=== PATIENT | male | born 1990 | race Hispanic/Latino ===

== ENCOUNTER 2020-03-06 17:22 | Emergency (ER) | payer OTHER ==
--- NOTE | 2020-03-06 19:21 | RAD REPORT ---
EXAM DESCRIPTION: CT - Head C Spine Mpr Wo Con - 03/06/2020 7:01 pm CLINICAL HISTORY: Numbness COMPARISON: None. TECHNIQUE: Computed axial tomography of the head and cervical spine was obtained. Sagittal and coronal reconstruction was performed. All CT scans are performed using dose optimization technique as appropriate and may include automated exposure control or mA/KV adjustment according to patient size. FINDINGS: An intracranial bleed is not seen. The ventricles are normal in caliber. An extra-axial fl uid collection is not noted.Fluid within the visualized sinuses and mastoids is not seen A cervical fracture is not visualized. No dislocation is noted. A high-grade stenosis is not visualiz ed. IMPRESSION: No acute intracranial abnormality is seen. A cervical fracture is not visualized. If the patient continues to have symptoms to suggest intracra nial /spinal cord/spinal canal pathology then MRI would be recommended
[2020-03-06 19:24] LABS: Absolute Lymphocytes (CBC) 2.4 K/uL (0.7-4.9); Basophils % 0.3 % (0-1.3); Hematocrit 46.1 % (39.6-49.0); Lymphocytes % 34.5 % (15.3-44.8); MPV 7.6 fL (7.6-11.3); RBC Red Blood Cell Count 5.38 M/uL (4.33-5.43)
[2020-03-06 19:43] LABS: ALT/SGPT 64 U/L (12-78); AST/SGOT 25 U/L (15-37); Albumin 4.2 g/dL (3.4-5.0); Alkaline Phosphatase 64 U/L (45-117); BUN Blood Urea Nitrogen 10 mg/dL (7-18); Bicarbonate 26 mmol/L (21-32); Bilirubin Direct < 0.1 mg/dL (0-0.2); Bilirubin Total 0.2 mg/dL (0.2-1.0); Glucose Level 96 mg/dL (74-106); Potassium 3.6 mmol/L (3.5-5.1); Protein, Total 8.3 g/dL (6.4-8.2); Sodium Level 140 mmol/L (136-145)
--- NOTE | 2020-03-06 19:47 | ER ---
Nurse's Notes [facility] Name: Michael Lizarraga Age: 29 yrs Sex: Male : 1990 Arrival Date: 03/06/2020 Time: 17:26 Bed 24 Private MD: Diagnosis: Paresthesia of skin;Radiculopathy Presentation: 03/06 18:00 Chief complaint: Patient states: Numbness, tingling on the L leg and L arm, been about ca1 a year. It gets worse after a night of drinking. I get shaky too, more on the L arm and leg. My leg and arm, it's just an uncomfortable feeling, not really pain. Coronavirus screen: Client denies travel out of the [place] in the last 14 days. At this time, the client does not indicate any symptoms associated with coronavirus-19. Ebola Screen: Patient negative for fever greater than or equal to 101.5 degrees Fahrenheit, and additional compatible Ebola Virus Disease symptoms Patient denies exposure to infectious person. Patient denies travel to an Ebola-affected area in the 21 days before illness onset. No symptoms or risks identified at this time. Initial Sepsis Screen: Does the patient meet any 2 criteria? No. Patient's initial sepsis screen is negative. Does the patient have a suspected source of infection? No. Patient's initial sepsis screen is negative. Risk Assessment: Do you want to hurt yourself or someone else? Patient reports no desire to harm self or others. Onset of symptoms was March 06, 2020. 18:00 Method Of Arrival: Ambulatory ca1 18:00 Acuity: ROSE 3 ca1 Historical: - Allergies: 18:06 No Known Allergies; ca1 - Home Meds: 18:06 None [Active]; ca1 - PMHx: 18:06 None; ca1 - PSHx: 18:06 None; ca1 - Immunization history:: Adult Immunizations up to date. - Social history:: Smoking status: Patient reports the use of cigarette tobacco products, smokes one-half pack cigarettes per day, Patient uses alcohol, weekly. heavy during the weekend. Screenin:46 Abuse screen: Denies threats or abuse. Nutritional screening: No deficits noted. jd3 Tuberculosis screening: No symptoms or risk factors identified. Fall Risk Ambulatory Aid- None/Bed Rest/Nurse Assist (0 pts). Gait- Normal/Bed Rest/Wheelchair (0 pts) Mental Status- Oriented to own ability (0 pts). Total Seo Fall Scale indicates No Risk (0-24 pts). 18:46 VAN Screening: Arm Drift: Patient shows no arm weakness. Patient is VAN negative. jd3 Assessment: 18:45 General: Appears in no apparent distress. uncomfortable, Behavior is calm, cooperative, jd3 appropriate for age. Pain: Denies pain. Neuro: Level of Consciousness is awake, alert, obeys commands, Oriented to person, place, time, situation, Telemarketing Fundraiser are equal bilaterally Moves all extremities. Full function Speech is normal, Facial symmetry appears normal, Pupils are PERRLA, Intact Reports numbness in left arm and left leg since X 1 year. Cardiovascular: Denies chest pain, Capillary refill < 3 seconds Patient's skin is warm and dry. Respiratory: Airway is patent Respiratory effort is even, unlabored, Respiratory pattern is regular, symmetrical. GI: Abdomen is round non-distended, Abd is soft and non tender X 4 quads. Patient currently denies diarrhea, nausea, vomiting. : No signs and/or symptoms were reported regarding the genitourinary system. EENT: No signs and/or symptoms were reported regarding the EENT system. Derm: Skin is intact, Skin is dry, Skin is normal, Skin temperature is warm. Musculoskeletal: Circulation, motion, and sensation intact. Range of motion: intact in all extremities. 19:20 Reassessment: Patient appears in no apparent distress at this time. No changes from jd3 previously documented assessment. Patient and/or family updated on plan of care and expected duration. Pain level reassessed. Patient is alert, oriented x 3, equal unlabored respirations, skin warm/dry/pink. 19:51 Reassessment: Patient appears in no apparent distress at this time. Patient and/or jd3 family updated on plan of care and expected duration. Pain level reassessed. Patient is alert, oriented x 3, equal unlabored respirations, skin warm/dry/pink. 19:59 Reassessment: Patient appears in no apparent distress at this time. Patient and/or jd3 family updated on plan of care and expected duration. Pain level reassessed. Patient is alert, oriented x 3, equal unlabored respirations, skin warm/dry/pink. reports understanding of discharge instructions, even and steady gait upon discharge. Vital Signs: 18:00 BP 152 / 96; Pulse 88; Resp 15 S; Temp 97.8(TE); Pulse Ox 99% on R/A; Weight 79.38 kg ca1 (R); Height 5 ft. 7 in. (170.18 cm) (R); 19:20 BP 141 / 88; Pulse 74; Resp 18 S; Pulse Ox 98% on R/A; jd3 19:51 BP 114 / 62; Pulse 77; Resp 16 S; Pulse Ox 97% on R/A; jd3 18:00 Body Mass Index 27.41 (79.38 kg, 170.18 cm) ca1 ED Course: 17:26 Patient arrived in ED. rg4 18:05 Triage completed. ca1 18:06 Arm band placed on right wrist. ca1 18:23 Gab Gavin PA is PHCP. jr8 18:23 Inderjit Haas MD is Attending Physician. jr8 18:45 Oracio De Jesus RN is Primary Nurse. jd3 18:46 Patient has correct armband on for positive identification. Bed in low position. Call jd3 light in reach. Side rails up X 1. Pulse ox on. NIBP on. 19:00 CT Head C Spine In Process Unspecified. EDMS 19:15 Inserted saline lock: 20 gauge in right antecubital area, using aseptic technique. jd3 Blood collected. 19:47 Landon Toney MD is Referral Physician. jr8 19:51 No provider procedures requiring assistance completed. jd3 20:00 IV discontinued, intact, bleeding controlled, No redness/swelling at site. Pressure jd3 dressing applied. Administered Medications: No medications were administered Outcome: 19:47 Discharge ordered by . jr8 20:00 Discharged to home ambulatory. jd3 20:00 Condition: stable 20:00 Discharge instructions given to patient, Instructed on discharge instructions, follow up and referral plans. Demonstrated understanding of instructions, follow-up care. 20:00 Patient left the ED. jd3 Signatures: Dispatcher [employer] EDMS Gab Gavin PA PA jr8 Jo Saxena rg4 Oracio De Jesus RN RN jd3 Sraa Torres RN RN ca1 Corrections: (The following items were deleted from the chart) 19:52 19:51 IV discontinued, intact, bleeding controlled, No redness/swelling at site. jd3 Pressure dressing applied, jd3
--- NOTE | 2020-03-06 19:48 | EDPHYS ---
Physician Documentation [facility] Name: Michael Lizarraga Age: 29 yrs Sex: Male : 1990 Arrival Date: 03/06/2020 Time: 17:26 Bed 24 Private MD: ED Physician Inderjit Haas HPI: 03/06 23:32 This 29 yrs old Male presents to ER via Ambulatory with complaints of Numbness jr8 Of Arm, Numbness Of Leg. 23:32 Onset: The symptoms/episode began/occurred gradually. Modifying factors: The symptoms jr8 are alleviated by nothing. the symptoms are aggravated by movement. Associated signs and symptoms: The patient has no apparent associated signs or symptoms. Severity of symptoms: At their worst the symptoms were moderate, in the emergency department the symptoms are unchanged. The patient has not experienced similar symptoms in the past. The patient has not recently seen a physician. Patient stated that for the past year has had numbness and tremors to left arm and leg. Worse with alcohol use. Became worse over the past few days which is why he came to be evaluated in ED today . Historical: - Allergies: 18:06 No Known Allergies; ca1 - Home Meds: 18:06 None [Active]; ca1 - PMHx: 18:06 None; ca1 - PSHx: 18:06 None; ca1 - Immunization history:: Adult Immunizations up to date. - Social history:: Smoking status: Patient reports the use of cigarette tobacco products, smokes one-half pack cigarettes per day, Patient uses alcohol, weekly. heavy during the weekend. ROS: 23:32 Eyes: Negative for injury, pain, redness, and discharge, ENT: Negative for injury, jr8 pain, and discharge, Neck: Negative for injury, pain, and swelling, Cardiovascular: Negative for chest pain, palpitations, and edema, Respiratory: Negative for shortness of breath, cough, wheezing, and pleuritic chest pain, Abdomen/GI: Negative for abdominal pain, nausea, vomiting, diarrhea, and constipation, Back: Negative for injury and pain, MS/Extremity: Negative for injury and deformity, Skin: Negative for injury, rash, and discoloration. 23:32 Neuro: Positive for numbness, tremor, of the left arm and left leg. Exam: 23:32 Constitutional: This is a well developed, well nourished patient who is awake, alert, jr8 and in no acute distress. Eyes: Pupils equal round and reactive to light, extra-ocular motions intact. Lids and lashes normal. Conjunctiva and sclera are non-icteric and not injected. Cornea within normal limits. Periorbital areas with no swelling, redness, or edema. ENT: Nares patent. No nasal discharge, no septal abnormalities noted. Tympanic membranes are normal and external auditory canals are clear. Oropharynx with no redness, swelling, or masses, exudates, or evidence of obstruction, uvula midline. Mucous membranes moist. Neck: Trachea midline, no thyromegaly or masses palpated, and no cervical lymphadenopathy. Supple, full range of motion without nuchal rigidity, or vertebral point tenderness. No Meningismus. Cardiovascular: Regular rate and rhythm with a normal S1 and S2. No gallops, murmurs, or rubs. Normal PMI, no JVD. No pulse deficits. Respiratory: Lungs have equal breath sounds bilaterally, clear to auscultation and percussion. No rales, rhonchi or wheezes noted. No increased work of breathing, no retractions or nasal flaring. Abdomen/GI: Soft, non-tender, with normal bowel sounds. No distension or tympany. No guarding or rebound. No evidence of tenderness throughout. Back: No spinal tenderness. No costovertebral tenderness. Full range of motion. Skin: Warm, dry with normal turgor. Normal color with no rashes, no lesions, and no evidence of cellulitis. MS/ Extremity: Pulses equal, no cyanosis. Neurovascular intact. Full, normal range of motion. 23:32 Neuro: Orientation: to person, place, time \T\ situation. Mentation: is normal, Memory: is normal, Cranial nerves: CN I not tested, CN II- XII are normal as tested, visual will are intact. extraocular movements are intact, Facial palsy and sensory deficits are absent. Nystagmus is absent. Speech is clear and appropriate. Tongue strength is normal, Cerebellar function: normal finger to nose testing, heel to baltazar testing is normal, Motor: moves all fours, strength is 5/5 in all extremities, Sensation: no obvious gross deficits, Gait: not tested. Deep tendon reflexes are 2+ (normal) in the right tricep, right bicep, right brachioradialis, right patellar, left bicep, left tricep, left brachioradialis and left patellar, seizure activity, is not displayed by the patient, Abnormal movements: there are no abnormal movements. Vital Signs: 18:00 BP 152 / 96; Pulse 88; Resp 15 S; Temp 97.8(TE); Pulse Ox 99% on R/A; Weight 79.38 kg ca1 (R); Height 5 ft. 7 in. (170.18 cm) (R); 19:20 BP 141 / 88; Pulse 74; Resp 18 S; Pulse Ox 98% on R/A; jd3 19:51 BP 114 / 62; Pulse 77; Resp 16 S; Pulse Ox 97% on R/A; jd3 18:00 Body Mass Index 27.41 (79.38 kg, 170.18 cm) ca1 MDM: 18:23 Patient medically screened. jr8 19:46 Data reviewed: vital signs, nurses notes, lab test result(s), radiologic studies, CT jr8 scan, and as a result, I will discharge patient. Data interpreted: Pulse oximetry: on room air is 98 %. Interpretation: normal. Counseling: I had a detailed discussion with the patient and/or guardian regarding: the historical points, exam findings, and any diagnostic results supporting the discharge/admit diagnosis, lab results, radiology results, the need for outpatient follow up, a neurologist, to return to the emergency department if symptoms worsen or persist or if there are any questions or concerns that arise at home. 03/06 18:45 Order name: Basic Metabolic Panel; Complete Time: 19:46 03/06 18:45 Order name: CBC with Diff; Complete Time: 19:46 03/06 18:45 Order name: LFT's; Complete Time: 19:46 03/06 18:45 Order name: Magnesium; Complete Time: 19:46 03/06 18:45 Order name: Cardiac monitoring; Complete Time: 18:47 03/06 18:45 Order name: CT Head C Spine; Complete Time: 19:22 03/06 18:45 Order name: IV Saline Lock; Complete Time: 19:50 03/06 18:45 Order name: Labs collected and sent; Complete Time: 19:50 03/06 18:45 Order name: O2 Per Protocol; Complete Time: 18:47 jr8 03/06 18:45 Order name: O2 Sat Monitoring; Complete Time: 18:47 8 Administered Medications: No medications were administered Disposition: 03/06/20 19:47 Discharged to Home. Impression: Paresthesia of skin, Radiculopathy. - Condition is Stable. - Discharge Instructions: Paresthesia, Peripheral Neuropathy. - Medication Reconciliation Form, Thank You Letter, Antibiotic Education, Prescription Opioid Use form. - Follow up: Landon Toney MD; When: 5 - 6 days; Reason: Recheck today's complaints, Continuance of care, Re-evaluation by your physician. - Problem is new. - Symptoms are unchanged. Addendum: 03/10/2020 20:25 Co-signature as Attending Physician, Inderjit Haas MD. r n Signatures: Dispatcher [employer] EDMS Inderjit Haas MD MD rn Gab Gavni, LATISHA GOOD jr8 Oracio De Jesus RN RN jSara Matias RN RN ca1 Corrections: (The following items were deleted from the chart) 03/06 20:00 19:47 03/06/2020 19:47 Discharged to Home. Impression: Paresthesia of skin; jd3 Radiculopathy. Condition is Stable. Forms are Medication Reconciliation Form, Thank You Letter, Antibiotic Education, Prescription Opioid Use. Follow up: Landon Toney; When: 5 - 6 days; Reason: Recheck today's complaints, Continuance of care, Re-evaluation by your physician. Problem is new. Symptoms are unchanged. jr8
[2020-03-06 21:50] VITALS: TEMP 97.8
[2020-03-06 21:52] VITALS: BP 114/62; O2SAT 97
== END 2020-03-06 20:00 | disposition home or self-care (01) ==
LOC: ER 17:22
DX: M54.10 Radiculopathy, site unspecified (principal); F17.210 Nicotine dependence, cigarettes, uncomplicated
CPT/HCPCS: 36415; 70450; 72125; 80048; 80076; 83735; 85025; 99284

== ENCOUNTER 2023-03-15 17:30 | Emergency (ER) | payer OTHER ==
--- OUTSIDE RECORDS SUMMARY | 2023-03-15 17:32 | XMS REPORT | Continuity of Care Document ---
:1990 Author Organization [facility] t Address [address] [facility] [address] [place] [id number] Care Team Providers Name Role Phone locum[facility] Attending Clinician Unavailable locumens Admitting Clinician Unavailable Payers Payer Name Policy Type Policy Number Effective Date Expiration Date [place] [id number] 00:00:00 Problems This patient has no known problems. Allergies, Adverse Reactions, Alerts This patient has no known allergies or adverse reactions. Medications This patient has no known medications. Procedures This patient has no known procedures. Encounters Start End Encounter Admission Attending Care Care Encounter Source Date/Time Date/Time Type Type Clinicians Facility Department ID 2020-12-20 2020-12-20 Outpatient [id number] [place] 04:30:00 04:30:00 [facility] Results This patient has no known results.
[2023-03-15 17:48] LABS: Absolute Lymphocytes (CBC) 4.4 K/uL (0.7-4.9); Hematocrit 41.4 % (39.6-49.0); MCV 85.8 fL (80-100); MPV 6.9 fL (7.6-11.3); Platelets 265 thou/uL (152-406); RBC Red Blood Cell Count 4.83 M/uL (4.33-5.43)
[2023-03-15] MEDS ORDERED: ASPIRIN 81 MG CHEWABLE TABLET ONE (17:55)
[2023-03-15] MEDS ORDERED: MAGNESIUM SULFATE 1 gm IVPB 1 GM/100 ML BAG IV ONE (17:56)
[2023-03-15] MEDS ORDERED: NA CHLORIDE 0.9% 2,000 ML ONE (17:56)
[2023-03-15] MEDS ORDERED: FAMOTIDINE 20 MG/2 ML VIAL IV ONE (17:56)
[2023-03-15 17:59] LABS: Protime INR 1.05
[2023-03-15 18:02] LABS: Potassium 3.4 mEq/L (3.5-5.1)
--- NOTE | 2023-03-15 18:08 | RAD REPORT ---
EXAM DESCRIPTION: Enrrique Single View03/15/2023 5:43 pm CLINICAL HISTORY: CHEST PAIN COMPARISON: No comparisons TECHNIQUE: Portable AP view of the chest. FINDINGS: The lungs are clear. No pneumothorax or effusion. The cardiomediastinal contours are unrem arkable. IMPRESSION: No acute cardiopulmonary process.
[2023-03-15 18:27] LABS: Specific Gravity 1.021 (1.005-1.030); Urine Bacteria None Seen /HPF (<20); Urine Bilirubin NEGATIVE (Negative); Urine Blood Negative (Negative); Urine Clarity Turbid (Clear); Urine Color Light-Yellow (Yellow); Urine Glucose NEGATIVE (Negative); Urine Mucus Slight /HPF (None Seen); Urine Protein 1+ (Negative); Urine RBC <5 /HPF (None Seen); Urine Urobilinogen Normal (Normal); Urine pH 6.5 (5.0-7.0)
[2023-03-15 18:29] LABS: Barbiturates NEGATIVE (NEGATIVE); Benzodiazepines NEGATIVE (NEGATIVE); Cocaine POSITIVE (NEGATIVE); METHAMPHETAM NEGATIVE (NEGATIVE); Methadone NEGATIVE (NEGATIVE); Opiates NEGATIVE (NEGATIVE); Phencyclidine NEGATIVE (NEGATIVE); THC Cannibis NEGATIVE (NEGATIVE)
[2023-03-15 18:33] LABS: ALT/SGPT 57 U/L (16-61); AST/SGOT 25 U/L (15-37); Albumin 3.9 g/dL (3.4-5.0); Alkaline Phosphatase 59 U/L (45-117); Bilirubin Direct 0.1 mg/dL (0-0.2); Bilirubin Indirect, Calculated 0.3 mg/dL (0.2-0.8); Bilirubin Total 0.4 mg/dL (0.2-1.0); Protein, Total 7.3 g/dL (6.4-8.2)
[2023-03-15] MEDS ORDERED: LORazepam 2 MG/ML VIAL ONE (18:52)
[2023-03-15] MEDS ORDERED: POTASSIUM 25 MEQ EFFERV TAB ONE (18:57)
[2023-03-15] MEDS ORDERED: THIAMINE 200 MG/2 ML INJ ONE (18:57)
[2023-03-15] MEDS ORDERED: MULTIVITAMINS 10 ML VIAL (INJ) IV ONE (18:58)
[2023-03-15] MEDS ORDERED: FOLIC ACID 5 MG/ML VIAL ONE (18:59)
[2023-03-15] MEDS ORDERED: NA CHLORIDE 0.9% 1,000 ML ONE (18:59)
--- NOTE | 2023-03-15 19:18 | ER ---
Nurse's Notes [facility] Name: Michael Lizarraga Age: 32 yrs Sex: Male : 1990 Arrival Date: 03/15/2023 Time: 17:30 Bed 20 Private MD: Diagnosis: Adjustment disorder with anxiety;Cocaine abuse;Chest pain, unspecified;Tachycardia, unspecified;Hypokalemia;Alcohol abuse with intoxication Presentation: 03/15 17:34 Chief complaint: EMS states: toned out for patient c/o chest fluttering for several me1 hours. On arrival HR 220s, SVT per EKG. Gave adenosine 12 mg x2. No response to the first dose but after the second dose HR came down to 120s, ST per EKG. Per patient he did do cocaine last night and was drinking for the past few days. 17:34 Method Of Arrival: EMS [facility] 17:37 Coronavirus screen: Vaccine status: Patient reports being unvaccinated. At this time, ma1 the client does not indicate any symptoms associated with coronavirus-19. Ebola Screen: No symptoms or risks identified at this time. Initial Sepsis Screen: Does the patient meet any 2 criteria? No. Patient's initial sepsis screen is negative. Does the patient have a suspected source of infection? No. Patient's initial sepsis screen is negative. Risk Assessment: Do you want to hurt yourself or someone else? Patient reports no desire to harm self or others. Onset of symptoms was March 15, 2023. 17:37 Method Of Arrival: EMS: [facility] 17:37 Acuity: ROSE 2 me1 Triage Assessment: 17:38 General: Appears distressed, well groomed, well developed, well nourished, Behavior is me1 cooperative, appropriate for age, anxious, restless. Pain: Denies pain. Neuro: Level of Consciousness is awake, alert, obeys commands, Oriented to person, place, time, situation, Appropriate for age. Cardiovascular: Capillary refill < 3 seconds Patient's skin is warm and dry. Cardiovascular: Reports palpitations, Respiratory: Airway is patent Respiratory effort is even, unlabored, Respiratory pattern is regular, symmetrical. Historical: - Allergies: 17:38 No Known Allergies; me1 - Home Meds: 17:38 gabapentin oral [Active]; me1 - PMHx: 17:38 neuropathy; me1 - PSHx: 17:38 None; me1 - Immunization history:: Adult Immunizations unknown. - Social history:: Smoking status: Reported history of juuling and/or vaping. Screenin:41 [facility] ED Fall Risk Assessment (Adult) History of falling in the last 3 months, me1 including since admission No falls in past 3 months (0 pts) Confusion or Disorientation No (0 pts) Intoxicated or Sedated No (0 pts) Impaired Gait No (0 pts) Mobility Assist Device Used No (0 pt) Altered Elimination No (0 pt) Score/Fall Risk Level 0 - 2 = Low Risk. Abuse screen: Denies threats or abuse. Nutritional screening: No deficits noted. Tuberculosis screening: No symptoms or risk factors identified. Assessment: 17:41 General: See triage assessment. . Pain: Denies pain. me1 21:31 Pain:. me1 Vital Signs: 17:37 BP 159 / 90; Pulse 137; Resp 20; Temp 99.1(O); Pulse Ox 96% on R/A; Weight 92.99 kg; me1 Height 5 ft. 6 in. ; 18:00 BP 136 / 59; Pulse 114; Resp 19; Pulse Ox 96% ; me1 19:00 BP 117 / 89; Pulse 110; Resp 17; Pulse Ox 96% ; me1 21:30 BP 143 / 101; Pulse 91; Resp 18; Pulse Ox 97% on R/A; me1 17:37 Body Mass Index 33.09 (92.99 kg, 167.64 cm) ma1 ED Course: 17:32 Patient arrived in ED. me1 17:34 Erinn Maza, YAHIR is Primary Nurse. me1 17:38 Triage completed. me1 17:38 Arm band placed on Patient placed in an exam room. me1 17:40 Joseph Flores MD is Attending Physician. [facility] 17:41 Patient has correct armband on for positive identification. Bed in low position. Call [facility] light in reach. Side rails up X2. Provided Education on: POC. Verbalized understanding. . Client placed on continuous cardiac and pulse oximetry monitoring. NIBP monitoring applied. ash kier boiler on. Pulse ox on. 17:41 No provider procedures requiring assistance completed. Inserted saline lock: 22 gauge me1 in right antecubital area, using aseptic technique. Patient maintains SpO2 saturation greater than 95% on room air. 17:44 XRAY Chest (1 view) In Process Unspecified. EDMS 17:47 Acetaminophen Sent. me1 17:47 ETOH Level Sent. me1 17:47 Hepatic Function Sent. me1 17:47 PT-INR Sent. me1 17:47 Ptt, Activated Sent. me1 17:47 Salicylate Sent. me1 17:47 TSH Sent. me1 18:08 TSH Sent. me1 18:08 Acetaminophen Sent. me1 18:08 ETOH Level Sent. me1 18:08 Hepatic Function Sent. me1 18:08 Salicylate Sent. me1 18:08 Urinalysis w/ reflexes Sent. me1 18:08 Urine Drug Screen Sent. me1 19:16 Rickie Davis MD is Referral Physician. mat 19:16 Eagle Vaughn MD is Referral Physician. mat 21:30 IV discontinued, intact, bleeding controlled, No redness/swelling at site. Pressure me1 dressing applied. Administered Medications: 17:41 CANCELLED (Duplicate Order): Digoxin IVP 0.5 mg IVP once mat 18:08 Drug: NS 0.9% IV 1000 ml Route: IV; Rate: 1 bolus; Site: right antecubital; me1 19:40 Follow up: IV Status: Completed infusion; IV Intake: 1000ml me1 18:08 Drug: NS 0.9% IV 1000 ml Route: IV; Rate: 1 bolus; Site: right antecubital; me1 19:00 Follow up: IV Status: Completed infusion; IV Intake: 1000ml me1 18:08 Drug: Magnesium Sulfate IVPB 1 grams Route: IVPB; Infused Over: 1 hrs; Site: left ma1 antecubital; 18:59 Follow up: IV Status: Completed infusion; IV Intake: 100ml me1 18:08 Drug: Famotidine IVP 20 mg Route: IVP; Site: right antecubital; me1 19:30 Follow up: Response: No adverse reaction me1 18:08 Drug: Aspirin PO Chewable Tablet 324 mg Route: PO; me1 21:33 Follow up: Response: No adverse reaction me1 18:35 Drug: Ativan IVP 1 mg Route: IVP; Site: left antecubital; ld1 18:58 Follow up: Response: No adverse reaction; Anxiety unchanged me1 18:59 Drug: Thiamine IV 100 mg Route: IV; Rate: bolus; Site: right antecubital; me1 21:33 Follow up: IV Status: Completed infusion me1 18:59 Drug: Banana Bag - (NS 0.9% IV 1000 ml, foLIC Acid IVPB 1 mg, Thiamine IV 100 mg, me1 Multivitamin IV 1 amp) Route: IV; Rate: 500 ml/hr; Site: left antecubital; 21:33 Follow up: IV Status: Completed infusion; IV Intake: 1000ml me1 18:59 Drug: Ativan IVP 1 mg Route: IVP; Site: right antecubital; ld1 19:59 Follow up: Response: No adverse reaction; Anxiety decreased me1 18:59 Drug: Potassium PO Effervescent Tablet 50 mEq Route: PO; me1 19:59 Follow up: Response: No adverse reaction me1 Medication: 17:41 VIS not applicable for this client. me1 Intake: 18:59 IV: 100ml; Total: 100ml. me1 19:00 IV: 1000ml; Total: 1100ml. me1 19:40 IV: 1000ml; Total: 2100ml. me1 21:33 IV: 1000ml; Total: 3100ml. me1 Outcome: 19:18 Discharge ordered by . mat 21:31 Discharged to home ambulatory, with family. me1 21:31 Condition: stable 21:31 Discharge instructions given to patient, Instructed on discharge instructions, follow up and referral plans. medication usage, Demonstrated understanding of instructions, follow-up care, medications, Prescriptions given X 1. 21:32 Patient left the ED. me1 Signatures: Dispatcher [employer] EDJoseph Oreilly MD MD cha Sims, Lauren, RN RN ld1 Erinn Maza, YAHIR RN me1 Corrections: (The following items were deleted from the chart) 17:39 17:38 PMHx: None; me1 me1
--- NOTE | 2023-03-15 19:18 | EDPHYS ---
Physician Documentation [facility] Name: Michael Lizarraga Age: 32 yrs Sex: Male : 1990 Arrival Date: 03/15/2023 Time: 17:30 Bed 20 Private MD: ED Physician Joseph Flores HPI: 03/15 18:41 This 32 yrs old Male presents to ER via EMS with complaints of Chest Pain, mat Drug Abuse. 18:41 The patient or guardian reports chest pain that is located primarily in the anterior mat chest wall, bilaterally. The pain does not radiate. Associated signs and symptoms: Pertinent positives: lightheadedness. The chest pain is described as aching. Duration: The patient or guardian reports multiple episodes, with no pattern. Modifying factors: The symptoms are alleviated by nothing. the symptoms are aggravated by nothing. Severity of pain: At its worst the pain was mild in the emergency department the pain is unchanged. The patient has not experienced similar symptoms in the past. Historical: - Allergies: 17:38 No Known Allergies; me1 - Home Meds: 17:38 gabapentin oral [Active]; me1 - PMHx: 17:38 neuropathy; me1 - PSHx: 17:38 None; me1 - Immunization history:: Adult Immunizations unknown. - Social history:: Smoking status: Reported history of juuling and/or vaping. ROS: 18:42 Constitutional: Negative for fever, chills, and weight loss, Eyes: Negative for injury, mat pain, redness, and discharge, ENT: Negative for injury, pain, and discharge, Neck: Negative for injury, pain, and swelling, Respiratory: Negative for shortness of breath, cough, wheezing, and pleuritic chest pain, Abdomen/GI: Negative for abdominal pain, nausea, vomiting, diarrhea, and constipation, Back: Negative for injury and pain, : Negative for injury, bleeding, discharge, and swelling, MS/Extremity: Negative for injury and deformity, Skin: Negative for injury, rash, and discoloration, Neuro: Negative for headache, weakness, numbness, tingling, and seizure, Allergy/Immunology: Negative for hives, rash, and allergies, Endocrine: Negative for neck swelling, polydipsia, polyuria, polyphagia, and marked weight changes, Hematologic/Lymphatic: Negative for swollen nodes, abnormal bleeding, and unusual bruising. 18:42 Cardiovascular: Positive for chest pain, of the chest. 18:42 Respiratory: Negative for shortness of breath. 18:42 Abdomen/GI: Negative for abdominal pain. 18:42 MS/extremity: Negative for acute changes. Exam: 18:49 Constitutional: This is a well developed, well nourished patient who is awake, alert, mat and in no acute distress. Head/Face: Normocephalic, atraumatic. Eyes: Pupils equal round and reactive to light, extra-ocular motions intact. Lids and lashes normal. Conjunctiva and sclera are non-icteric and not injected. Cornea within normal limits. Periorbital areas with no swelling, redness, or edema. ENT: Nares patent. No nasal discharge, no septal abnormalities noted. Tympanic membranes are normal and external auditory canals are clear. Oropharynx with no redness, swelling, or masses, exudates, or evidence of obstruction, uvula midline. Mucous membranes moist. Neck: Trachea midline, no thyromegaly or masses palpated, and no cervical lymphadenopathy. Supple, full range of motion without nuchal rigidity, or vertebral point tenderness. No Meningismus. Chest/axilla: Normal chest wall appearance and motion. Nontender with no deformity. No lesions are appreciated. Respiratory: Lungs have equal breath sounds bilaterally, clear to auscultation and percussion. No rales, rhonchi or wheezes noted. No increased work of breathing, no retractions or nasal flaring. Abdomen/GI: Soft, non-tender, with normal bowel sounds. No distension or tympany. No guarding or rebound. No evidence of tenderness throughout. Back: No spinal tenderness. No costovertebral tenderness. Full range of motion. Male : Normal genitalia with no discharge or lesions. Skin: Warm, dry with normal turgor. Normal color with no rashes, no lesions, and no evidence of cellulitis. MS/ Extremity: Pulses equal, no cyanosis. Neurovascular intact. Full, normal range of motion. Neuro: Awake and alert, GCS 15, oriented to person, place, time, and situation. Cranial nerves II-XII grossly intact. Motor strength 5/5 in all extremities. Sensory grossly intact. Cerebellar exam normal. Normal gait. Psych: Awake, alert, with orientation to person, place and time. Behavior, mood, and affect are within normal limits. 18:49 Cardiovascular: Rate: tachycardic, actual rate is 137 bpm, Rhythm: regular, Pulses: Pulses are 4+ in bilateral radial, brachial, femoral, popliteal, posterior tibial and and dorsalis pedis arteries.. Heart sounds: normal, Edema: is not appreciated, JVD: is not appreciated. 18:49 ECG was reviewed by the Attending Physician. Vital Signs: 17:37 BP 159 / 90; Pulse 137; Resp 20; Temp 99.1(O); Pulse Ox 96% on R/A; Weight 92.99 kg; me1 Height 5 ft. 6 in. ; 18:00 BP 136 / 59; Pulse 114; Resp 19; Pulse Ox 96% ; me1 19:00 BP 117 / 89; Pulse 110; Resp 17; Pulse Ox 96% ; me1 21:30 BP 143 / 101; Pulse 91; Resp 18; Pulse Ox 97% on R/A; me1 17:37 Body Mass Index 33.09 (92.99 kg, 167.64 cm) me1 MDM: 17:40 Patient medically screened. mat 18:55 Differential diagnosis: Ingestion/exposure to cocaine polypharmacy, hypoglycemia, mat abnormal EKG, acute myocardial infarction, acute pericarditis, anxiety, hiatal hernia, pancreatitis, pleurisy, pneumonia, pulmonary embolus, stable angina, unstable angina. Differential Diagnosis altered mental status. HEART Score: History: Slightly Suspicious (0), ECG: Non specific repolarization disturbance / LBTB / PM (1), Age: < or = 45 years (0), Risk Factors: No Risk Factors Known (0), Troponin: < or = 1 x Normal Limit (0). BIPIN Risk Score: TOTAL SCORE = 0. Data reviewed: vital signs, nurses notes, lab test result(s), EKG, radiologic studies, plain films. Consideration of Admission/Observation Escalation of care including admission/observation considered. I considered the following discharge prescriptions or medication management in the emergency department Medications were administered in the Emergency Department. See MAR. Independent interpretation of the following test(s) in the Emergency Department EKG: See my EKG interpretation above. Test considered but Not performed: Ultrasound no 2 d echo. Historians other than the Patient: EMS: ems, pt well informed. Care significantly affected by the following chronic conditions: neuropathy. Counseling: I had a detailed discussion with the patient and/or guardian regarding the historical points, exam findings, and any diagnostic results supporting the discharge/admit diagnosis, lab results, radiology results, the need for outpatient follow up, for definitive care, a miniature train driver, a family practitioner, a psychiatrist. 03/15 17:33 Order name: Basic Metabolic Panel; Complete [place]: 18:[place] [facility] [place] 17:33 Order name: CBC with Diff; Complete Time: 18:[place] [facility] [place] 17:33 Order name: Troponin HS; Complete Time: 18:[place] [facility] [place] 17:40 Order name: Acetaminophen; Complete Time: 18:39 [facility] 03/15 17:40 Order name: ETOH Level; Complete Time: 18:39 [facility] 03/15 17:40 Order name: Hepatic Function; Complete Time: 18:39 [facility] 03/15 17:40 Order name: PT-INR; Complete Time: 18:39 [facility] 03/15 17:40 Order name: Ptt, Activated; Complete Time: 18:39 [facility] 03/15 17:40 Order name: Salicylate; Complete Time: 18:39 [facility] 03/15 17:40 Order name: Urinalysis w/ reflexes; Complete Time: 18:39 [facility] 03/15 17:40 Order name: Urine Drug Screen; Complete Time: 18:39 [facility] 03/15 17:41 Order name: TSH; Complete Time: 18:39 [facility] 03/15 18:30 Order name: Urine Culture [facility] 03/15 17:33 Order name: XRAY Chest (1 view); Complete Time: 18:[place] [facility] [place] 17:33 Order name: EKG; Complete Time: 17:34 [facility] [place] 17:33 Order name: Cardiac monitoring; Complete Time: 17:[place] [facility] [place] 03/[place] 17:33 Order name: EKG - Nurse/Tech; Complete Time: 17:33 [facility] [place] 03/[place] 17:33 Order name: IV Saline Lock; Complete Time: 17:33 [facility] [place] 03/[place] 17:33 Order name: Labs collected and sent; Complete Time: 17:33 [facility] [place] 17:33 Order name: O2 Per Protocol; Complete Time: 17:[place] [facility] [place] 17:33 Order name: O2 Sat Monitoring; Complete Time: 17:33 [facility] [place] 03/[place] 17:40 Order name: Suicide Screening ([place]) mat EC:49 Rate is 142 beats/min. Rhythm is regular. QRS [place] is Normal. UT interval is normal. mat QRS interval is normal. QT interval is normal. No Q waves. T waves are Normal. No ST changes noted. Clinical impression: Sinus tachycardia. Interpreted by me. Reviewed by me. Administered Medications: 17:41 CANCELLED (Duplicate Order): Digoxin IVP 0.5 mg IVP once [facility] 18:08 Drug: NS 0.9% IV 1000 ml Route: IV; Rate: 1 bolus; Site: right antecubital; me1 19:40 Follow up: IV Status: Completed infusion; IV Intake: 1000ml [facility] [place]:08 Drug: NS 0.9% IV 1000 ml Route: IV; Rate: 1 bolus; Site: right antecubital; me1 19:00 Follow up: IV Status: Completed infusion; IV Intake: 1000ml nd1 18:08 Drug: Magnesium Sulfate IVPB 1 grams Route: IVPB; Infused Over: 1 hrs; Site: left nd1 antecubital; 18:59 Follow up: IV Status: Completed infusion; IV Intake: 100ml me1 18:08 Drug: Famotidine IVP 20 mg Route: IVP; Site: right antecubital; me1 19:30 Follow up: Response: No adverse reaction me1 18:08 Drug: Aspirin PO Chewable Tablet 324 mg Route: PO; me1 21:33 Follow up: Response: No adverse reaction me1 18:35 Drug: Ativan IVP 1 mg Route: IVP; Site: left antecubital; ld1 18:58 Follow up: Response: No adverse reaction; Anxiety unchanged me1 18:59 Drug: Thiamine IV 100 mg Route: IV; Rate: bolus; Site: right antecubital; me1 21:33 Follow up: IV Status: Completed infusion me1 18:59 Drug: Banana Bag - (NS 0.9% IV 1000 ml, foLIC Acid IVPB 1 mg, Thiamine IV 100 mg, me1 Multivitamin IV 1 amp) Route: IV; Rate: 500 ml/hr; Site: left antecubital; 21:33 Follow up: IV Status: Completed infusion; IV Intake: 1000ml me1 18:59 Drug: Ativan IVP 1 mg Route: IVP; Site: right antecubital; ld1 19:59 Follow up: Response: No adverse reaction; Anxiety decreased me1 18:59 Drug: Potassium PO Effervescent Tablet 50 mEq Route: PO; me1 19:59 Follow up: Response: No adverse reaction me1 Disposition Summary: 03/15/23 19:18 Discharge Ordered Location: Home mat Problem: new mat Symptoms: have improved mat Condition: Stable mat Diagnosis - Adjustment disorder with anxiety mat - Cocaine abuse mat - Chest pain, unspecified mat - Tachycardia, unspecified mat - Hypokalemia mat - Alcohol abuse with intoxication mat Followup: mat - With: Private Physician - When: 2 - 3 days - Reason: Recheck today's complaints, Re-evaluation by your physician Followup: mat - With: Rickie Davis MD - When: 2 - 3 days - Reason: Recheck today's complaints, Continuance of care, Re-evaluation by your physician Followup: mat - With: Eagle Vaughn MD - When: 2 - 3 days - Reason: Recheck today's complaints, Re-evaluation by your physician Discharge Instructions: - Discharge Summary Sheet mat - Alcohol Intoxication mat - Panic Attack mat - Nonspecific Chest Pain, Adult mat - Cocaine Use Disorder mat - Potassium Content of Foods mat - Alcohol Intoxication, [id number] mat - Nonspecific Chest Pain, Adult, [id number] mat - Aspirin and Your Heart mat - Hypokalemia mat - Sinus Tachycardia mat - Supporting Someone With Anxiety mat Forms: - Medication Reconciliation Form mat - Thank You Letter mat - Antibiotic Education mat - Prescription Opioid Use mat - Patient Portal Instructions mat - Leadership Thank You Letter mat Prescriptions: - Hydroxyzine HCl 25 mg Oral Tablet - take 1 tablet by ORAL route every 6 hours As needed; 30 tablet; Refills: 0, mat Product Selection Permitted Signatures: Dispatcher [employer] Joseph Strong MD MD cha Sims, Lauren RN RN ld1 Erinn Maza RN RN me1 Corrections: (The following items were deleted from the chart) 17:39 17:38 PMHx: None; me1 me1 17:41 17:40 Digoxin IVP 0.5 mg IVP once ordered. mat mat
[2023-03-15 22:07] VITALS: TEMP 99.1
[2023-03-15 22:10] VITALS: BP 143/101; O2SAT 97
--- NOTE | 2023-03-16 12:14 | EKG ---
Test Date: 2023-03-15 Test Time: 17:29:59 Corporate Account Executive: MATIAS MEASUREMENT RESULTS: Intervals: Rate: 142 WA: 124 QRSD: 90 QT: 300 QTc: 461 [place]: P: 63 WA: 124 QRS: 77 T: 13 INTERPRETIVE STATEMENTS: Sinus tachycardia Otherwise normal ECG Compared to ECG 04/04/2016 00:26:00 Sinus rhythm no longer present Electronically Signed On 03-16-23 12:12:18 CDT by Eagle Vaughn
== END 2023-03-15 21:32 | disposition home or self-care (01) ==
LOC: ER 17:30
DX: F14.10 Cocaine abuse, uncomplicated (principal); F43.22 Adjustment disorder with anxiety; E87.6 Hypokalemia; F10.129 Alcohol abuse with intoxication, unspecified; R00.0 Tachycardia, unspecified
CPT/HCPCS: 93005; 87088; 85025; 81001; 87086; 80048; 36415; 85610; 80076; 85730; 84443; 84484; 80307; 71045; 99285; 80143; 80179; 82077; J3411; J3475; J7030 ×2

== ENCOUNTER 2023-03-17 05:31 | Emergency (ER) | payer OTHER ==
--- OUTSIDE RECORDS SUMMARY | 2023-03-17 05:33 | XMS REPORT | Continuity of Care Document ---
:[address] [facility] t Address [address] [place] [address] Care Team Providers Name Role Phone locumens Attending Clinician Unavailable locumens Admitting Clinician Unavailable Payers Payer Name Policy Type Policy Number Effective Date Expiration Date S [place] [id number] 2012 00:00:00 Problems This patient has no known problems. Allergies, Adverse Reactions, Alerts This patient has no known allergies or adverse reactions. Medications This patient has no known medications. Procedures This patient has no known procedures. Encounters Start End Encounter Admission Attending Care Care Encounter Source Date/Time Date/Time Type Type Clinicians Facility Department ID 2020-12-20 2020-12-20 [id number] [place] 04:30:00 04:30:00 [facility] Results This patient has no known results.
[2023-03-17 06:12] LABS: Absolute Lymphocytes (CBC) 3.3 K/uL (0.7-4.9); Hematocrit 46.9 % (39.6-49.0); Lymphocytes % 39.5 % (15.3-44.8); MCV 85.4 fL (80-100); MPV 7.5 fL (7.6-11.3); Platelets 229 thou/uL (152-406); RBC Red Blood Cell Count 5.48 M/uL (4.33-5.43)
[2023-03-17 06:14] LABS: Protime INR 0.99
[2023-03-17] MEDS ORDERED: ASPIRIN 81 MG CHEWABLE TABLET ONE (06:26)
[2023-03-17] MEDS ORDERED: DIPHENHYDRAMINE 50 MG/ML VIAL ONE (06:34)
[2023-03-17] MEDS ORDERED: METOPROLOL TAR 50 MG TAB ONE (06:34)
[2023-03-17 06:35] LABS: Bilirubin Direct 0.2 mg/dL (0-0.2); Bilirubin Indirect, Calculated 0.5 mg/dL (0.2-0.8); Bilirubin Total 0.7 mg/dL (0.2-1.0); Potassium 3.6 mEq/L (3.5-5.1); Protein, Total 8.1 g/dL (6.4-8.2); Troponin High Sensitivity 6.7 pg/mL (<58.9)
[2023-03-17] MEDS ORDERED: LORazepam 2 MG/ML VIAL ONE (06:42)
--- NOTE | 2023-03-17 06:48 | ER ---
Nurse's Notes [facility] Name: Michael Lizarraga Age: 32 yrs Sex: Male : 1990 Arrival Date: 03/17/2023 Time: 05:31 Bed 19 Private MD: Diagnosis: Anxiety disorder, unspecified;Cocaine abuse with cocaine-induced anxiety disorder;Chest pain, unspecified Presentation: 03/17 05:42 Chief complaint: Patient states: "I CAN'T FEEL MY HEART RIGHT AND I BEEN WAKING UP bp SWEATING WITH ANXIETY". Coronavirus screen: At this time, the client does not indicate any symptoms associated with coronavirus-19. Ebola Screen: No symptoms or risks identified at this time. Initial Sepsis Screen: Does the patient meet any 2 criteria? No. Patient's initial sepsis screen is negative. Does the patient have a suspected source of infection? No. Patient's initial sepsis screen is negative. Risk Assessment: Do you want to hurt yourself or someone else? Patient reports no desire to harm self or others. Onset of symptoms was March 17, 2023. 05:42 Method Of Arrival: Ambulatory bp 05:42 Acuity: ROSE 3 bp Triage Assessment: 05:43 General: Appears in no apparent distress. Behavior is cooperative, appropriate for age, bp anxious. Pain: Denies pain. EENT: No deficits noted. Neuro: Level of Consciousness is awake, alert, obeys commands, Oriented to Appropriate for age. Cardiovascular: Rhythm is sinus rhythm. Respiratory: No deficits noted. GI: No signs and/or symptoms were reported involving the gastrointestinal system. : No signs and/or symptoms were reported regarding the genitourinary system. Derm: No deficits noted. Musculoskeletal: No deficits noted. Historical: - Allergies: 05:43 No Known Allergies; bp - Home Meds: 05:43 gabapentin oral [Active]; bp - PMHx: 05:43 neuropathy; bp - Immunization history:: Adult Immunizations up to date. - Social history:: Smoking status: Patient denies any tobacco usage or history of. - Family history:: not pertinent. Screenin:[facility] ED Fall Risk Assessment (Adult) History of falling in the last 3 months, bp including since admission No falls in past 3 months (0 pts). Abuse screen: Denies threats or abuse. Denies injuries from another. Nutritional screening: No deficits noted. Tuberculosis screening: No symptoms or risk factors identified. Assessment: 05:50 General: SEE TRIAGE NOTE. bp 07:00 Reassessment: Patient appears in no apparent distress at this time. Patient and/or kc6 family updated on plan of care and expected duration. Pain level reassessed. Patient is alert, oriented x 3, equal unlabored respirations, skin warm/dry/pink. 07:10 Reassessment: d/c pending UDS results \\T\\ IV fluid completion. kc6 Vital Signs: 05:42 BP 157 / 101; Pulse 76; Resp 16; Temp 98; Pulse Ox 98% ; bp 07:10 BP 126 / 95; Pulse 77; Resp 18 S; Pulse Ox 95% on R/A; kc6 ED Course: 05:34 Patient arrived in ED. ag3 05:42 Milton Peter, RN is Primary Nurse. bp 05:43 Triage completed. bp 05:43 Arm band placed on. bp 05:50 Patient has correct armband on for positive identification. Bed in low position. Call bp light in reach. Side rails up X2. Adult w/ patient. 05:50 Inserted saline lock: 20 gauge in right antecubital area, using aseptic technique. bp Blood collected. 05:57 Joseph Flores MD is Attending Physician. mat 06:45 XRAY Chest (1 view) In Process Unspecified. EDMS 06:48 Eagle Vaughn MD is Referral Physician. mat 06:48 Rickie Davis MD is Referral Physician. mat 07:00 Report received from Milton Peter RN. kc6 07:56 No provider procedures requiring assistance completed. IV discontinued, intact, kc6 bleeding controlled, No redness/swelling at site. Pressure dressing applied. Administered Medications: 06:28 Drug: Aspirin PO Chewable Tablet 324 mg Route: PO; bp 07:55 Follow up: Response: No adverse reaction kc6 06:28 Drug: NS 0.9% IV 1000 ml Route: IV; Rate: 1 bolus; Site: right antecubital; bp 07:55 Follow up: Response: No adverse reaction; IV Status: Completed infusion; IV Intake: kc6 1000ml 06:28 Drug: Labetalol PO 100 mg Route: PO; bp 07:55 Follow up: Response: No adverse reaction; Blood pressure is lowered; Cardiac rhythm kc6 changed; RASS: Alert and Calm (0) 06:28 Drug: diphenhydrAMINE IVP 25 mg Route: IVP; Site: right antecubital; bp 07:56 Follow up: Response: No adverse reaction; Anxiety unchanged kc6 06:39 Drug: Ativan IVP 1 mg Route: IVP; Site: right antecubital; bp 07:56 Follow up: Response: No adverse reaction; Anxiety decreased; Cardiac rhythm changed; kc6 RASS: Alert and Calm (0) 06:39 Not Given (Other Intervention Used): Ativan IVP 1 mg IVP once bp Medication: 07:56 VIS not applicable for this client. kc6 Intake: 07:55 IV: 1000ml; Total: 1000ml. kc6 Outcome: 06:48 Discharge ordered by MD. rivero 07:56 Discharged to home ambulatory, with family. kc6 07:56 Condition: improved 07:56 Discharge instructions given to patient, Instructed on discharge instructions, follow up and referral plans. medication usage, Demonstrated understanding of instructions, follow-up care, medications, Prescriptions given X 2. 07:56 Patient left the ED. kc6 Signatures: Dispatcher [employer] EDMS Joseph Flores MD MD cha Peltier, Brian, RN RN Zeina Penaloza Kaitlyn, RN RN kc6
--- NOTE | 2023-03-17 06:48 | EDPHYS ---
Physician Documentation [facility] Name: Michael Lizarraga Age: 32 yrs Sex: Male : 1990 Arrival Date: 03/17/2023 Time: 05:31 Bed 19 Private MD: KERRI Physician Joseph Flores HPI: 03/17 06:33 This 32 yrs old Male presents to ER via Ambulatory with complaints of mat SWEATING, CHEST PAIN. 06:33 The patient presents to the emergency department with anxiety. Onset: The mat symptoms/episode began/occurred this morning. Past psychiatric history: Prior diagnosis: anxiety substance abuse. The patient or guardian reports chest pain that is located primarily in the anterior chest wall, bilaterally. hx of cocaine. The pain does not radiate. Associated signs and symptoms: Pertinent positives; anxiety. The chest pain is described as squeezing. Modifying factors: The symptoms are alleviated by nothing. the symptoms are aggravated by nothing. Severity of pain: At its worst the pain was mild in the emergency department the pain has resolved. Historical: - Allergies: 05:43 No Known Allergies; bp - Home Meds: 05:43 gabapentin oral [Active]; bp - PMHx: 05:43 neuropathy; bp - Immunization history:: Adult Immunizations up to date. - Social history:: Smoking status: Patient denies any tobacco usage or history of. - Family history:: not pertinent. ROS: 06:33 Constitutional: Negative for fever, chills, and weight loss, Eyes: Negative for injury, mat pain, redness, and discharge, ENT: Negative for injury, pain, and discharge, Neck: Negative for injury, pain, and swelling, Cardiovascular: Negative for chest pain, palpitations, and edema, Respiratory: Negative for shortness of breath, cough, wheezing, and pleuritic chest pain, Abdomen/GI: Negative for abdominal pain, nausea, vomiting, diarrhea, and constipation, Back: Negative for injury and pain, : Negative for injury, bleeding, discharge, and swelling, MS/Extremity: Negative for injury and deformity, Skin: Negative for injury, rash, and discoloration, Neuro: Negative for headache, weakness, numbness, tingling, and seizure, Psych: Negative for depression, anxiety, suicide ideation, homicidal ideation, and hallucinations, Allergy/Immunology: Negative for hives, rash, and allergies, Endocrine: Negative for neck swelling, polydipsia, polyuria, polyphagia, and marked weight changes, Hematologic/Lymphatic: Negative for swollen nodes, abnormal bleeding, and unusual bruising. Exam: 06:33 Constitutional: This is a well developed, well nourished patient who is awake, alert, mat and in no acute distress. Head/Face: Normocephalic, atraumatic. Eyes: Pupils equal round and reactive to light, extra-ocular motions intact. Lids and lashes normal. Conjunctiva and sclera are non-icteric and not injected. Cornea within normal limits. Periorbital areas with no swelling, redness, or edema. ENT: Nares patent. No nasal discharge, no septal abnormalities noted. Tympanic membranes are normal and external auditory canals are clear. Oropharynx with no redness, swelling, or masses, exudates, or evidence of obstruction, uvula midline. Mucous membranes moist. Neck: Trachea midline, no thyromegaly or masses palpated, and no cervical lymphadenopathy. Supple, full range of motion without nuchal rigidity, or vertebral point tenderness. No Meningismus. Chest/axilla: Normal chest wall appearance and motion. Nontender with no deformity. No lesions are appreciated. Cardiovascular: Regular rate and rhythm with a normal S1 and S2. No gallops, murmurs, or rubs. Normal PMI, no JVD. No pulse deficits. Respiratory: Lungs have equal breath sounds bilaterally, clear to auscultation and percussion. No rales, rhonchi or wheezes noted. No increased work of breathing, no retractions or nasal flaring. Abdomen/GI: Soft, non-tender, with normal bowel sounds. No distension or tympany. No guarding or rebound. No evidence of tenderness throughout. Back: No spinal tenderness. No costovertebral tenderness. Full range of motion. Male : Normal genitalia with no discharge or lesions. Skin: Warm, dry with normal turgor. Normal color with no rashes, no lesions, and no evidence of cellulitis. MS/ Extremity: Pulses equal, no cyanosis. Neurovascular intact. Full, normal range of motion. Neuro: Awake and alert, GCS 15, oriented to person, place, time, and situation. Cranial nerves II-XII grossly intact. Motor strength 5/5 in all extremities. Sensory grossly intact. Cerebellar exam normal. Normal gait. Psych: Awake, alert, with orientation to person, place and time. Behavior, mood, and affect are within normal limits. 06:33 ECG was reviewed by the Attending Physician. 06:40 ECG was reviewed by the Attending Physician. mat Vital Signs: 05:42 BP 157 / 101; Pulse 76; Resp 16; Temp 98; Pulse Ox 98% ; bp 07:10 BP 126 / 95; Pulse 77; Resp 18 S; Pulse Ox 95% on R/A; kc6 MDM: 05:58 Patient medically screened. mat 06:35 Differential diagnosis: drug withdrawal. acute psychotic break, depression, psychosis mat secondary to non-compliance, abnormal EKG, acute myocardial infarction, acute pericarditis, anxiety, coronary artery disease costochondritis, pancreatitis, pulmonary embolus, stable angina, thoracic aortic disection, unstable angina. Differential Diagnosis altered mental status. HEART Score: History: Slightly Suspicious (0), ECG: Normal (0), Age: < or = 45 years (0), Risk Factors: No Risk Factors Known (0), Troponin: < or = 1 x Normal Limit (0). BIPIN Risk Score: TOTAL SCORE = 0. Data reviewed: vital signs, nurses notes, lab test result(s), EKG, radiologic studies, plain films. Consideration of Admission/Observation Escalation of care including admission/observation considered. I considered the following discharge prescriptions or medication management in the emergency department Medications were administered in the Emergency Department. See MAR. Independent interpretation of the following test(s) in the Emergency Department EKG: See my EKG interpretation above. Test considered but Not performed: CT: no ct chest. Care significantly affected by the following chronic conditions: cocaine , neuropathy. 03/17 05:42 Order name: Basic Metabolic Panel; Complete Time: 06:47 bp 03/17 05:42 Order name: CBC with Diff; Complete Time: 06:31 bp 03/17 05:42 Order name: LFT's; Complete Time: 06:47 bp 03/17 05:42 Order name: PT-INR; Complete Time: 06:31 bp 03/17 05:42 Order name: Troponin HS; Complete Time: 06:47 bp 03/17 06:10 Order name: Lipase; Complete Time: 06:47 EDMS 03/17 06:13 Order name: UDS mat 03/17 05:42 Order name: XRAY Chest (1 view) bp 03/17 05:42 Order name: EKG; Complete Time: 05:43 bp 03/17 06:32 Order name: EKG; Complete Time: 06:32 mat 03/17 05:42 Order name: Cardiac monitoring; Complete Time: 05:54 bp 03/17 05:42 Order name: EKG - Nurse/Tech; Complete Time: 05:54 bp 03/17 05:42 Order name: IV Saline Lock; Complete Time: 05:54 bp 03/17 05:42 Order name: Labs collected and sent; Complete Time: 05:54 bp 03/17 05:42 Order name: O2 Per Protocol; Complete Time: 05:54 bp 03/17 05:42 Order name: O2 Sat Monitoring; Complete Time: 05:54 bp 03/17 06:32 Order name: EKG - Nurse/Tech; Complete Time: 06:39 mat EC:33 Rate is 81 beats/min. Rhythm is regular. QRS [place] is Normal. [place] interval is normal. QRS mat interval is normal. QT interval is normal. No Q waves. T waves are Normal. No ST changes noted. Clinical impression: NSR w/ Non-specific ST/T Changes and No evidence of ischemia. Interpreted by me. Reviewed by me. 06:40 Rate is 102 beats/min. Rhythm is regular. QRS [place] is Normal. [place] interval is normal. mat QRS interval is normal. QT interval is normal. No Q waves. T waves are Normal. No ST changes noted. Clinical impression: Sinus tachycardia and No evidence of ischemia. Interpreted by me. Reviewed by me. Administered Medications: 06:28 Drug: Aspirin PO Chewable Tablet 324 mg Route: PO; bp 07:55 Follow up: Response: No adverse reaction kc6 06:28 Drug: NS 0.9% IV 1000 ml Route: IV; Rate: 1 bolus; Site: right antecubital; bp 07:55 Follow up: Response: No adverse reaction; IV Status: Completed infusion; IV Intake: kc6 1000ml 06:28 Drug: Labetalol PO 100 mg Route: PO; bp 07:55 Follow up: Response: No adverse reaction; Blood pressure is lowered; Cardiac rhythm kc6 changed; RASS: Alert and Calm (0) 06:28 Drug: diphenhydrAMINE IVP 25 mg Route: IVP; Site: right antecubital; bp 07:56 Follow up: Response: No adverse reaction; Anxiety unchanged kc6 06:39 Drug: Ativan IVP 1 mg Route: IVP; Site: right antecubital; bp 07:56 Follow up: Response: No adverse reaction; Anxiety decreased; Cardiac rhythm changed; kc6 RASS: Alert and Calm (0) 06:39 Not Given (Other Intervention Used): Ativan IVP 1 mg IVP once bp Disposition Summary: 03/17/23 06:48 Discharge Ordered Location: Home mat Problem: new mat Symptoms: have improved mat Condition: Stable mat Diagnosis - Anxiety disorder, unspecified mat - Cocaine abuse with cocaine-induced anxiety disorder mat - Chest pain, unspecified mat Followup: mat - With: Private Physician - When: 2 - 3 days - Reason: Recheck today's complaints, Continuance of care, Re-evaluation by your physician Followup: mat - With: - When: 2 - 3 days - Reason: Recheck today's complaints, Re-evaluation by your physician Followup: mat - With: - When: 2 - 3 days - Reason: Recheck today's complaints, Continuance of care, Re-evaluation by your physician Discharge Instructions: - Discharge Summary Sheet mat - Nonspecific Chest Pain, Adult mat - Cocaine Use Disorder mat - Nonspecific Chest Pain, Adult, [id number] mat - Aspirin and Your Heart mat - Generalized Anxiety Disorder, Adult mat - Managing Anxiety, Adult [facility] Forms: - Medication Reconciliation Form [facility] - Thank You Letter [facility] - Antibiotic Education mat - Prescription Opioid Use mat - Patient Portal Instructions [facility] - Leadership Thank You Letter [facility] Prescriptions: - labetalol 100 mg Oral tablet - take 1 tablet by ORAL route every 12 hours; 40 tablet; Refills: 0, Product [facility] Selection Permitted - Hydroxyzine HCl 25 mg Oral Tablet - take 1 tablet by ORAL route every 6 hours As needed; 30 tablet; Refills: 0, [facility] Product Selection Permitted Signatures: Dispatcher [employer] Joseph Strong MD MD cha Peltier, Brian, RN RN Bhavana Marcos RN kc6 Corrections: (The following items were deleted from the chart) 06:10 05:59 LIPASE+C.LAB.BRZ ordered. EDMS ROSEN
--- NOTE | 2023-03-17 07:08 | RAD REPORT ---
EXAM DESCRIPTION: Enrrique Single View03/17/2023 6:43 am CLINICAL HISTORY: Chest pain COMPARISON: March 15, 2023 FINDINGS: The lungs appear clear of acute infiltrate. The heart is normal size IMPRESSION: No acute abnormalities displayed
[2023-03-17 07:27] LABS: Barbiturates NEGATIVE (NEGATIVE); Benzodiazepines NEGATIVE (NEGATIVE); Cocaine POSITIVE (NEGATIVE); METHAMPHETAM NEGATIVE (NEGATIVE); Methadone NEGATIVE (NEGATIVE); Opiates NEGATIVE (NEGATIVE); Phencyclidine NEGATIVE (NEGATIVE); THC Cannibis NEGATIVE (NEGATIVE)
[2023-03-17 08:57] VITALS: TEMP 98
[2023-03-17 08:58] VITALS: BP 126/95; O2SAT 95
--- NOTE | 2023-03-17 16:27 | EKG ---
Test Date: 2023-03-17 Test Time: 05:43:18 Fiber Glass Worker: LIBBY MEASUREMENT RESULTS: Intervals: Rate: 81 IL: 142 QRSD: 88 QT: 382 QTc: 443 [place]: P: 55 IL: 142 QRS: 47 T: 38 INTERPRETIVE STATEMENTS: Normal sinus rhythm Normal ECG Compared to ECG 03/15/2023 17:29:59 Sinus tachycardia no longer present Electronically Signed On 03-17-23 16:25:20 CDT by Eagle Vaughn
--- NOTE | 2023-03-17 16:27 | EKG ---
Test Date: 2023-03-17 Test Time: 06:34:53 [employer]: BP MEASUREMENT RESULTS: Intervals: Rate: 102 [place]: 128 QRSD: 94 QT: 356 QTc: 463 [place]: P: 57 [place]: 128 QRS: 55 T: 51 INTERPRETIVE STATEMENTS: Sinus tachycardia Otherwise normal ECG Compared to ECG 03/17/2023 05:43:18 Sinus rhythm no longer present Electronically Signed On 03-17-23 16:25:19 CDT by Eagle Vaughn
== END 2023-03-17 07:56 | disposition home or self-care (01) ==
LOC: ER 05:31
DX: F14.180 Cocaine abuse with cocaine-induced anxiety disorder (principal); F41.9 Anxiety disorder, unspecified
CPT/HCPCS: 96361; 93005 ×2; 85025; 80048; 36415; 85610; 80076; 84484; 83690; 80307; 71045; 96375; 96374; 99284; J1200

== ENCOUNTER 2023-03-19 02:12 | Emergency (ER) | payer OTHER ==
--- OUTSIDE RECORDS SUMMARY | 2023-03-19 02:15 | XMS REPORT | Continuity of Care Document ---
:1990 Author Organization [facility] t Address [address] [place] [address] Care Team Providers Name Role Phone [facility]um[facility] Attending Clinician Unavailable locumens Admitting Clinician Unavailable Payers Payer Name Policy Type Policy Number Effective Date Expiration Date S d[place] [id number] 00:00:00 Problems This patient has no known problems. Allergies, Adverse Reactions, Alerts This patient has no known allergies or adverse reactions. Medications This patient has no known medications. Procedures This patient has no known procedures. Encounters Start End Encounter Admission Attending Care Care Encounter Source Date/Time Date/Time Type Type Clinicians Facility Department ID 2020-12-20 2020-12-20 [id number] [place] 04:30:00 04:30:00 [facility] Results This patient has no known results.
[2023-03-19] MEDS ORDERED: LORazepam 2 MG/ML VIAL ONE (02:45)
[2023-03-19] MEDS ORDERED: ONDANSETRON 4 MG/2 ML VIAL ONE (02:45)
[2023-03-19] MEDS ORDERED: MORPHINE 4 MG/ML SYR ONE (02:45)
[2023-03-19] MEDS ORDERED: NA CHLORIDE 0.9% 1,000 ML ONE (02:45)
[2023-03-19 03:10] LABS: Absolute Lymphocytes (CBC) 2.3 K/uL (0.7-4.9); Hematocrit 39.7 % (39.6-49.0); Lymphocytes % 26.2 % (15.3-44.8); MCV 85.7 fL (80-100); MPV 7.4 fL (7.6-11.3); Platelets 197 thou/uL (152-406); Protime INR 1.04; RBC Red Blood Cell Count 4.63 M/uL (4.33-5.43)
[2023-03-19 03:22] LABS: BUN Blood Urea Nitrogen 15 mg/dL (7-18); Bicarbonate 24 mEq/L (21-32); Glucose Level 113 mg/dL (74-106); Potassium 3.1 mEq/L (3.5-5.1); Sodium Level 140 mEq/L (136-145)
[2023-03-19 03:23] LABS: ALT/SGPT 59 U/L (16-61); AST/SGOT 23 U/L (15-37); Albumin 3.7 g/dL (3.4-5.0); Alkaline Phosphatase 59 U/L (45-117); Bilirubin Total 0.3 mg/dL (0.2-1.0); Glomerular Filtration Rate 96 ml/min (=/>90); Magnesium 1.7 mg/dL (1.6-2.4); NT PRO-BNP 13 pg/mL (<125); Protein, Total 7.1 g/dL (6.4-8.2); Troponin High Sensitivity 4.9 pg/mL (<58.9)
[2023-03-19 04:01] LABS: Bilirubin Direct < 0.1 mg/dL (0-0.2); Bilirubin Indirect, Calculated ND mg/dL (0.2-0.8)
--- NOTE | 2023-03-19 05:05 | ER ---
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 Coronavirus screen: At this bp time, the client does not indicate any symptoms associated with coronavirus-19. Ebola Screen: No symptoms or risks identified at this time. Initial Sepsis Screen: Does the patient meet any 2 criteria? HR > 90 bpm. No. Patient's initial sepsis screen is negative. Does the patient have a suspected source of infection? No. Patient's initial sepsis screen is negative. Risk Assessment: Do you want to hurt yourself or someone else? Patient reports no desire to harm self or others. Onset of symptoms was March 19, 2023 at 01:00. Care prior to arrival: Medication(s) given: ASA, 81 mg, x 4, Nitroglycerin, 0.4 mg SL x 2, IV initiated. 20 GA, in the right antecubital area. 02:16 Method Of Arrival: EMS: [facility] bp 02:16 Acuity: ROSE 3 bp Triage Assessment: 02:18 General: Appears distressed, Behavior is cooperative, agitated, anxious. Pain: Denies bp pain. EENT: No deficits noted. Neuro: No deficits noted. Cardiovascular: Rhythm is sinus tachycardia. Respiratory: No deficits noted. GI: No signs and/or symptoms were reported involving the gastrointestinal system. : No signs and/or symptoms were reported regarding the genitourinary system. Derm: No deficits noted. Musculoskeletal: No deficits noted. Historical: - Home Meds: 02:18 gabapentin oral [Active]; bp - PMHx: 02:18 neuropathy; bp - Immunization history:: Adult Immunizations up to date. - Social history:: Smoking status: Patient reports the use of cigarette tobacco products, unknown amount Patient uses street drugs, cocaine. Screenin:20 [facility] ED Fall Risk Assessment (Adult) History of falling in the last 3 months, bp including since admission No falls in past 3 months (0 pts). Abuse screen: Denies threats or abuse. Denies injuries from another. Nutritional screening: No deficits noted. Tuberculosis screening: No symptoms or risk factors identified. Assessment: 02:16 General: see triage assessment. jw7 03:35 Reassessment: Patient appears in no apparent distress at this time. No changes from jw7 previously documented assessment. Patient and/or family updated on plan of care and expected duration. Pain level reassessed. Patient is alert, oriented x 3, equal unlabored respirations, skin warm/dry/pink. Vital Signs: 02:16 BP 160 / 70; Pulse 130; Resp 20; Temp 99.4; Pulse Ox 96% ; bp 02:26 Weight 92.99 kg; Height 5 ft. 9 in. ; oe 03:30 BP 138 / 92; Pulse 88; Resp 18 S; Pulse Ox 95% on R/A; jw7 05:04 BP 140 / 88; Pulse 61; Resp 15; Pulse Ox 100% ; bp 02:26 Body Mass Index 30.27 (92.99 kg, 175.26 cm) oe ED Course: 02:16 Patient arrived in ED. bp 02:16 Carlos A Leavitt MD is Attending Physician. sp4 02:18 Triage completed. bp 02:18 Arm band placed on. bp 02:19 Maintain EMS IV. Dressing intact. Good blood return noted. Site clean \T\ dry. Gauge \T\ bp site: 20 GA R AC. 02:20 Milton Peter, RN is Primary Nurse. bp 02:20 Patient has correct armband on for positive identification. Bed in low position. Call bp light in reach. Side rails up X2. 03:56 Door closed. Noise minimized. jw7 05:03 James Caldera MD is Referral Physician. sp4 05:37 No provider procedures requiring assistance completed. IV discontinued, intact, bp bleeding controlled, No redness/swelling at site. Pressure dressing applied. Administered Medications: 02:48 Drug: morphine IVP or IV 4 mg Route: IVP; Infused Over: 4 mins; Site: right antecubital;bp 05:04 Follow up: Response: No adverse reaction bp 02:49 Drug: Ativan IVP 2 mg Route: IVP; Site: right antecubital; bp 05:04 Follow up: Response: No adverse reaction bp 02:49 Drug: NS 0.9% IV 1000 ml Route: IV; Rate: 125 ml/hr; Site: right antecubital; bp 05:05 Follow up: IV Status: Completed infusion; IV Intake: 1000ml bp 02:49 Drug: Ondansetron IVP 4 mg Route: IVP; Site: right antecubital; bp 05:04 Follow up: Response: No adverse reaction bp Intake: 05:05 IV: 1000ml; Total: 1000ml. bp Outcome: 05:05 Discharge ordered by sp4 05:37 Discharged to home ambulatory, with family. bp 05:37 Condition: stable 05:37 Discharge instructions given to patient, Instructed on discharge instructions, follow up and referral plans. Demonstrated understanding of instructions, follow-up care. 05:37 Patient left the ED. bp Signatures: Seven Barron Brian, RN RN bp Norma Helton RN RN jw7 Carlos A Leavitt MD MD sp4 Corrections: (The following items were deleted from the chart) 03:55 02:15 General: see triage assessment. jw7 jw7
--- NOTE | 2023-03-19 05:05 | EDPHYS ---
Physician Documentation [facility] Name: Michael Lizarraga Age: 32 yrs Sex: Male : 1990 Arrival Date: 03/19/2023 Time: 02:12 Bed 7 Private MD: ED Physician Carlos A Leavitt HPI: 03/19 02:16 This 32 yrs old Male presents to ER via Unassigned with complaints of sp4 Palpitations. 02:16 32-year-old male presents with chest pain, anxiety, and tachycardia.. sp4 02:21 Patient presents for the third time this month. Patient initially presented on sp4 03/15/2023 was tested positive for cocaine. Patient then presented for chest pain on 03/17/2023 and tested positive for cocaine. Patient then presents today again for similar complaints of palpitations, tachycardia, chest pain, anxiety. He denied using cocaine last night.. 02:23 During last visit on 03/17/2023 patient was prescribed labetalol - Prescriptions: sp4 labetalol 100 mg Oral tablet take 1 tablet by ORAL route every 12 hours; 40 tablet; Hydroxyzine HCl 25 mg Oral Tablet take 1 tablet by ORAL route every 6 hours As needed; 30 tablet; . Historical: - Home Meds: 02:18 gabapentin oral [Active]; bp - PMHx: 02:18 neuropathy; bp - Immunization history:: Adult Immunizations up to date. - Social history:: Smoking status: Patient reports the use of cigarette tobacco products, unknown amount Patient uses street drugs, cocaine. ROS: 02:22 Constitutional: Negative for fever, chills, and weight loss, Cardiovascular: Positive sp4 for chest pain, palpitations, tachycardia. Negative for shortness of breath. 02:22 All other systems are negative. Exam: 02:22 Constitutional: This is a well developed, well nourished patient who is awake, alert, sp4 and in no acute distress. Anxious appearing male Head/Face: Normocephalic, atraumatic. Eyes: Pupils equal round and reactive to light, extra-ocular motions intact. Lids and lashes normal. Conjunctiva and sclera are not injected. Cornea within normal limits. Periorbital areas with no swelling, redness, or edema. ENT: Nares patent. No nasal discharge, no septal abnormalities noted. Tympanic membranes are normal and external auditory canals are clear. Oropharynx with no redness, swelling, or masses, exudates, or evidence of obstruction, uvula midline. Mucous membranes moist. Neck: Trachea midline, no thyromegaly or masses palpated, and no cervical lymphadenopathy. Supple, full range of motion without nuchal rigidity, or vertebral point tenderness. Chest/axilla: Normal chest wall appearance and motion. Nontender with no deformity. No lesions are appreciated. Cardiovascular: Positive regular tachycardia, with a normal S1 and S2. No gallops, murmurs, or rubs. Normal PMI, no JVD. No pulse deficits. Respiratory: Lungs have equal breath sounds bilaterally, clear to auscultation and percussion. No rales, rhonchi or wheezes noted. No increased work of breathing, no retractions or nasal flaring. Abdomen/GI: Soft, non-tender, with normal bowel sounds. No distension or tympany. No guarding or rebound. No evidence of tenderness throughout. Back: No spinal tenderness. No costovertebral tenderness. Skin: Warm, dry with normal turgor. Normal color with no rashes, no lesions, and no evidence of cellulitis. MS/ Extremity: Pulses equal, no cyanosis. Neurovascular intact. Full, normal range of motion. Neuro: Awake and alert, GCS 15, oriented to person, place, time, and situation. Cranial nerves II-XII grossly intact. Motor strength 5/5 in all extremities. Sensory grossly intact. Psych: Awake, alert, with orientation to person, place and time. Behavior, mood, and affect are within normal limits 02:33 ECG was reviewed by the Attending Physician. EKG time 0 220, normal sinus rhythm, at sp4 rate of 97, normal EKG, no ST elevation or depression, no active ectopy Vital Signs: 02:16 BP 160 / 70; Pulse 130; Resp 20; Temp 99.4; Pulse Ox 96% ; bp 02:26 Weight 92.99 kg; Height 5 ft. 9 in. ; oe 03:30 BP 138 / 92; Pulse 88; Resp 18 S; Pulse Ox 95% on R/A; jw7 05:04 BP 140 / 88; Pulse 61; Resp 15; Pulse Ox 100% ; bp 02:26 Body Mass Index 30.27 (92.99 kg, 175.26 cm) oe MDM: 02:32 Patient medically screened. sp4 02:33 Differential Diagnosis altered mental status, sepsis, flu. Data reviewed: vital signs, sp4 nurses notes, EMS record, old medical records, lab test result(s), EKG. 05:01 Consideration of Admission/Observation Escalation of care including sp4 admission/observation considered. ED course: Patient has more alert normal labs today basically mild hypokalemia but otherwise normal labs. Patient's symptoms have improved after Ativan IV. Patient has no sign of any medical illness. Most likely consequence of cocaine use including anxiety, tachycardia, and other symptoms associated with abuse of a stimulant. We will advised patient to stay away from dangerous and recreational drugs.. 03/19 02:17 Order name: Basic Metabolic Panel; Complete Time: 04:41 sp4 03/19 02:17 Order name: CBC with Diff; Complete Time: 03:31 sp4 03/19 02:17 Order name: LFT's; Complete Time: 04:41 sp4 03/19 02:17 Order name: Magnesium; Complete Time: 04:41 sp4 03/19 02:17 Order name: NT PRO-BNP; Complete Time: 04:41 sp4 03/19 02:17 Order name: PT-INR; Complete Time: 03:31 sp4 03/19 02:17 Order name: Troponin HS; Complete Time: 04:41 sp4 03/19 02:22 Order name: Urine Drug Screen; Complete Time: 05:29 sp4 03/19 02:17 Order name: EKG; Complete Time: 02:35 sp4 03/19 02:17 Order name: Cardiac monitoring; Complete Time: 02:20 sp4 03/19 02:17 Order name: EKG - Nurse/Tech; Complete Time: 02:20 sp4 03/19 02:17 Order name: IV Saline Lock; Complete Time: 02:20 sp4 03/19 02:17 Order name: Labs collected and sent; Complete Time: 02:49 sp4 03/19 02:17 Order name: O2 Per Protocol; Complete Time: 02:20 sp4 03/19 02:17 Order name: O2 Sat Monitoring; Complete Time: 02:20 sp4 EC:33 Rate is 97 beats/min. Rhythm is regular, Normal Sinus Rhythm. QRS [place] is Normal. HI sp4 interval is normal. QRS interval is normal. QT interval is normal. T waves are Normal. No ST changes noted. Clinical impression: Normal ECG. Interpreted by me. Administered Medications: 02:48 Drug: morphine IVP or IV 4 mg Route: IVP; Infused Over: 4 mins; Site: right antecubital;bp 05:04 Follow up: Response: No adverse reaction bp 02:49 Drug: Ativan IVP 2 mg Route: IVP; Site: right antecubital; bp 05:04 Follow up: Response: No adverse reaction bp 02:49 Drug: NS 0.9% IV 1000 ml Route: IV; Rate: 125 ml/hr; Site: right antecubital; bp 05:05 Follow up: IV Status: Completed infusion; IV Intake: 1000ml bp 02:49 Drug: Ondansetron IVP 4 mg Route: IVP; Site: right antecubital; bp 05:04 Follow up: Response: No adverse reaction bp Disposition Summary: 03/19/23 05:05 Discharge Ordered Location: Home sp4 Problem: new sp4 Symptoms: have improved sp4 Condition: Stable sp4 Diagnosis - Anxiety disorder, unspecified - Acute anxiety attack, 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
[2023-03-19 05:26] LABS: Barbiturates NEGATIVE (NEGATIVE); Benzodiazepines NEGATIVE (NEGATIVE); Cocaine NEGATIVE (NEGATIVE); METHAMPHETAM NEGATIVE (NEGATIVE); Methadone NEGATIVE (NEGATIVE); Opiates NEGATIVE (NEGATIVE); Phencyclidine NEGATIVE (NEGATIVE); THC Cannibis NEGATIVE (NEGATIVE)
[2023-03-19 06:03] VITALS: TEMP 99.4
[2023-03-19 06:06] VITALS: BP 140/88; O2SAT 100
--- NOTE | 2023-03-19 12:02 | EKG ---
Test Date: 2023-03-19 Test Time: 02:20:53 Sociology Instructor: KASHMIR MEASUREMENT RESULTS: Intervals: Rate: 97 ME: 136 QRSD: 92 QT: 346 QTc: 439 [place]: P: 56 ME: 136 QRS: 54 T: 29 INTERPRETIVE STATEMENTS: Normal sinus rhythm Normal ECG Compared to ECG 03/17/2023 06:34:53 Sinus tachycardia no longer present Electronically Signed On 03-19-23 12:02:22 CDT by Eagle Vaughn
== END 2023-03-19 05:37 | disposition home or self-care (01) ==
LOC: ER 02:12
DX: F41.0 Panic disorder [episodic paroxysmal anxiety] (principal); F14.180 Cocaine abuse with cocaine-induced anxiety disorder; F17.210 Nicotine dependence, cigarettes, uncomplicated
CPT/HCPCS: 96361; 93005; 85025; 80048; 36415; 83735; 85610; 80076; 84484; 83880; 80307; 96375; 96374; 99284; J2405; J7030